=== PATIENT | female | born 1955 | race Caucasian/White ===

== ENCOUNTER 2017-03-10 10:59 | Emergency (ER) | payer OTHER ==
[2017-03-10 13:05] LABS: BASOPHIL 0.1 % (0-2); EOSINOPHIL 0.2 % (0-5); HCT 37.4 % (37.0-47.0); HGB 12.4 g/dl (12.5-16.0); LYMPHOCYTE 9.1 % (15-48); MCH 33.8 pg (25.0-31.0); MCHC 33.2 g/dL (32.0-36.0); MCV 101.9 fL (78.0-100.0); MONOCYTE 4.3 % (0-12); MPV 8.1 fL (6.0-9.5); NEUTROPHIL 86.3 % (41-80); PLT 449 K/uL (150-400); RBC 3.67 M/uL (4.20-5.40); RDW 16.8 % (11.5-14.0)
[2017-03-10 13:13] LABS: BILIRUBIN NEGATIVE (NEGATIVE); BLOOD NEGATIVE Ery/uL (NEGATIVE); CLARITY CLEAR (CLEAR); COLOR YELLOW (YELLOW); GLUCOSE (U) NORMAL (NORMAL); KETONE (U) TRACE mg/dL (NEGATIVE); LEUKOCYTES TRACE Leu/uL (NEGATIVE); NITRITE NEGATIVE (NEGATIVE); PROTEIN TRACE (LOW) mg/dL (NEGATIVE); SPECIFIC GRAVITY 1.015 (1.001-1.030); pH 5.5 (5.0-9.0)
[2017-03-10 13:19] LABS: CREATININE 0.5 mg/dL (0.5-1.0); POTASSIUM 3.6 mmol/L (3.5-5.1)
[2017-03-10 13:26] LABS: WBC 16.7 K/uL (4.0-10.5)
[2017-03-10 13:33] LABS: BACTERIA 2+
[2017-05-23] MEDS ORDERED: COLACE100 MG PO (11:17)
[2017-05-23] MEDS ORDERED: PERCOCET 10/321 EACH PO (11:18)
[2017-05-23] MEDS ORDERED: LEVAQUIN500 MG PO (11:18)
[2017-05-23] MEDS ORDERED: METRONIDAZOLE500 MG PO (11:18)
[2017-05-23] MEDS ORDERED: SYNTHROID25 MCG PO (11:19)
[2017-05-23] MEDS ORDERED: MAG-OXIDE 400M400 MG PO (11:19)
[2017-05-23] MEDS ORDERED: VITAMIN D5000 UNIT PO (11:19)
[2017-05-23] MEDS ORDERED: LEXAPRO 10MG TA10 MG PO (11:19)
[2017-05-23] MEDS ORDERED: PROTONIX 40MG T40 MG PO (11:19)
[2017-05-23] MEDS ORDERED: DIAZEPAM 5MG TAB5 MG PO (11:19)
[2017-05-23] MEDS ORDERED: ZOFRAN ODT4 MG PO (11:20)
[2017-05-23] MEDS ORDERED: POTASSIUM GLUC500 MG PO (11:20)
[2017-05-23] MEDS ORDERED: FOLIC ACID1 MG PO (11:20)
[2017-05-23] MEDS ORDERED: LIPITOR 10MG TA10 MG PO (11:20)
== END 2017-03-10 14:20 | disposition home or self-care (01) ==
LOC: FER 10:59
PROVIDERS: Internal Medicine
DX: R55 Syncope and collapse (principal); R42 Dizziness and giddiness; I10 Essential (primary) hypertension; F32.9 Major depressive disorder, single episode, unspecified; F17.210 Nicotine dependence, cigarettes, uncomplicated; Z85.118 Personal history of other malignant neoplasm of bronchus and lung; Z79.899 Other long term (current) drug therapy
CPT/HCPCS: 36415; 80048; 81001; 84484; 85025; 93005

== ENCOUNTER 2017-03-11 11:55 | Emergency (ER) | payer OTHER ==
[2017-05-23] MEDS ORDERED: COLACE100 MG PO (11:17)
[2017-05-23] MEDS ORDERED: LEVAQUIN500 MG PO (11:18)
[2017-05-23] MEDS ORDERED: PERCOCET 10/321 EACH PO (11:18)
[2017-05-23] MEDS ORDERED: METRONIDAZOLE500 MG PO (11:18)
[2017-05-23] MEDS ORDERED: LEXAPRO 10MG TA10 MG PO (11:19)
[2017-05-23] MEDS ORDERED: SYNTHROID25 MCG PO (11:19)
[2017-05-23] MEDS ORDERED: MAG-OXIDE 400M400 MG PO (11:19)
[2017-05-23] MEDS ORDERED: PROTONIX 40MG T40 MG PO (11:19)
[2017-05-23] MEDS ORDERED: DIAZEPAM 5MG TAB5 MG PO (11:19)
[2017-05-23] MEDS ORDERED: VITAMIN D5000 UNIT PO (11:19)
[2017-05-23] MEDS ORDERED: FOLIC ACID1 MG PO (11:20)
[2017-05-23] MEDS ORDERED: ZOFRAN ODT4 MG PO (11:20)
[2017-05-23] MEDS ORDERED: POTASSIUM GLUC500 MG PO (11:20)
[2017-05-23] MEDS ORDERED: LIPITOR 10MG TA10 MG PO (11:20)
== END 2017-03-11 16:01 | disposition home or self-care (01) ==
LOC: FER 11:55
DX: G47.00 Insomnia, unspecified (principal); R10.9 Unspecified abdominal pain; R19.7 Diarrhea, unspecified; I10 Essential (primary) hypertension; J44.9 Chronic obstructive pulmonary disease, unspecified; F17.210 Nicotine dependence, cigarettes, uncomplicated; Z85.841 Personal history of malignant neoplasm of brain; Z85.118 Personal history of other malignant neoplasm of bronchus and lung; Z88.2 Allergy status to sulfonamides; Z88.5 Allergy status to narcotic agent; Z90.49 Acquired absence of other specified parts of digestive tract; Z90.10 Acquired absence of unspecified breast and nipple; Z90.89 Acquired absence of other organs; Z98.890 Other specified postprocedural states
CPT/HCPCS: 99283

== ENCOUNTER → 2017-04-09 | Day surgery (SDC) | payer OTHER ==
[~2017-04-09] VITALS: Ht 172.7 cm; Wt 64.1 kg
[~2017-04-09] MED LIST: COLACE100 MG PO; DIAZEPAM 5MG TAB5 MG PO; FOLIC ACID1 MG PO; LEVAQUIN500 MG PO; LEXAPRO 10MG TA10 MG PO; LIPITOR 10MG TA10 MG PO; MAG-OXIDE 400M400 MG PO; METRONIDAZOLE500 MG PO; PERCOCET 10/321 EACH PO; POTASSIUM GLUC500 MG PO; PROTONIX 40MG T40 MG PO; SYNTHROID25 MCG PO; VITAMIN D5000 UNIT PO; ZOFRAN ODT4 MG PO
== END | disposition home or self-care (01) ==
LOC: FAS 08:00
DX: I87.2 Venous insufficiency (chronic) (peripheral) (principal); I10 Essential (primary) hypertension; K21.9 Gastro-esophageal reflux disease without esophagitis; E03.9 Hypothyroidism, unspecified; J44.9 Chronic obstructive pulmonary disease, unspecified; D64.9 Anemia, unspecified; M19.90 Unspecified osteoarthritis, unspecified site; F41.9 Anxiety disorder, unspecified; F17.210 Nicotine dependence, cigarettes, uncomplicated; Z88.0 Allergy status to penicillin; Z88.2 Allergy status to sulfonamides; Z88.5 Allergy status to narcotic agent; Z79.899 Other long term (current) drug therapy; Z90.49 Acquired absence of other specified parts of digestive tract; Z90.710 Acquired absence of both cervix and uterus
CPT/HCPCS: 71010; 76000; C1788; J1644; J2704; J3010

== ENCOUNTER 2017-04-15 06:49 | Emergency (ER) | payer OTHER ==
[2017-04-15 07:55] LABS: BASOPHIL 0.3 % (0-2); EOSINOPHIL 1.1 % (0-5); HGB 11.1 g/dl (12.5-16.0); LYMPHOCYTE 19.5 % (15-48); MCH 33.1 pg (25.0-31.0); MCHC 32.6 g/dL (32.0-36.0); MCV 101.5 fL (78.0-100.0); MONOCYTE 5.4 % (0-12); MPV 7.8 fL (6.0-9.5); NEUTROPHIL 73.7 % (41-80); PLT 231 K/uL (150-400); RBC 3.35 M/uL (4.20-5.40); RDW 15.4 % (11.5-14.0); WBC 6.3 K/uL (4.0-10.5)
[2017-04-15 08:02] LABS: BILIRUBIN 1+ mg/dL (NEGATIVE); BLOOD 1+ Ery/uL (NEGATIVE); CLARITY SLIGHTLY HAZY (CLEAR); COLOR YELLOW (YELLOW); GLUCOSE (U) NORMAL (NORMAL); KETONE (U) TRACE mg/dL (NEGATIVE); LEUKOCYTES 2+ Leu/uL (NEGATIVE); NITRITE NEGATIVE (NEGATIVE); PROTEIN NEGATIVE (NEGATIVE); UROBILINOGEN 0.2 mg/dL (0.2-1.0)
[2017-04-15 08:06] LABS: INR 0.92 (0.9-1.2); PTT 35.4 SECONDS (23.2-31.4)
[2017-04-15 08:07] LABS: BACTERIA 2+; URINARY WBC TNTC
[2017-04-15 08:14] LABS: ALBUMIN 4.3 g/dL (3.4-4.8); BILIRUBIN - TOTAL 0.4 mg/dL (0.1-1.0); CREATININE 0.8 mg/dL (0.5-1.0); GLOBULIN (CALCULATION) 3.3 g/dL (2.2-4.2); POTASSIUM 3.7 mmol/L (3.5-5.1); TOTAL PROTEIN 7.6 g/dL (6.4-8.3)
[2017-05-23] MEDS ORDERED: COLACE100 MG PO (11:17)
[2017-05-23] MEDS ORDERED: LEVAQUIN500 MG PO (11:18)
[2017-05-23] MEDS ORDERED: METRONIDAZOLE500 MG PO (11:18)
[2017-05-23] MEDS ORDERED: PERCOCET 10/321 EACH PO (11:18)
[2017-05-23] MEDS ORDERED: LEXAPRO 10MG TA10 MG PO (11:19)
[2017-05-23] MEDS ORDERED: MAG-OXIDE 400M400 MG PO (11:19)
[2017-05-23] MEDS ORDERED: DIAZEPAM 5MG TAB5 MG PO (11:19)
[2017-05-23] MEDS ORDERED: SYNTHROID25 MCG PO (11:19)
[2017-05-23] MEDS ORDERED: VITAMIN D5000 UNIT PO (11:19)
[2017-05-23] MEDS ORDERED: PROTONIX 40MG T40 MG PO (11:19)
[2017-05-23] MEDS ORDERED: POTASSIUM GLUC500 MG PO (11:20)
[2017-05-23] MEDS ORDERED: ZOFRAN ODT4 MG PO (11:20)
[2017-05-23] MEDS ORDERED: LIPITOR 10MG TA10 MG PO (11:20)
[2017-05-23] MEDS ORDERED: FOLIC ACID1 MG PO (11:20)
== END 2017-04-15 09:55 | disposition home or self-care (01) ==
LOC: FER 06:49
PROVIDERS: Emergency Medicine
DX: K62.5 Hemorrhage of anus and rectum (principal); C34.90 Malignant neoplasm of unspecified part of unspecified bronchus or lung; R19.7 Diarrhea, unspecified; R82.90 Unspecified abnormal findings in urine; F17.210 Nicotine dependence, cigarettes, uncomplicated; Z85.3 Personal history of malignant neoplasm of breast; Z92.21 Personal history of antineoplastic chemotherapy; Z88.0 Allergy status to penicillin; Z88.2 Allergy status to sulfonamides; Z88.5 Allergy status to narcotic agent
CPT/HCPCS: 36415; 74022; 80053; 81001; 85025; 85610; 85730; 87076; 87088; 87186; 99284

== ENCOUNTER 2017-06-24 12:30 | Inpatient (IN) | payer OTHER ==
[~2017-06-24] VITALS: Ht 172.7 cm; Wt 60.4 kg
[2017-06-24 15:00] LABS: BASOPHIL 0.2 % (0-2); EOSINOPHIL 1.6 % (0-5); HCT 27.6 % (37.0-47.0); HGB 9.1 g/dl (12.5-16.0); LYMPHOCYTE 23.7 % (15-48); MCH 31.2 pg (25.0-31.0); MCV 94.5 fL (78.0-100.0); MONOCYTE 1.9 % (0-12); MPV 8.4 fL (6.0-9.5); NEUTROPHIL 72.6 % (41-80); PLT 341 K/uL (150-400); RBC 2.92 M/uL (4.20-5.40); RDW 16.3 % (11.5-14.0); WBC 4.9 K/uL (4.0-10.5)
[2017-06-24 15:23] LABS: ALBUMIN 3.4 g/dL (3.4-4.8); BILIRUBIN - TOTAL 0.4 mg/dL (0.1-1.0); CREATININE 0.7 mg/dL (0.5-1.0); GLOBULIN (CALCULATION) 3.1 g/dL (2.2-4.2); POTASSIUM 2.8 mmol/L (3.5-5.1); TOTAL PROTEIN 6.5 g/dL (6.4-8.3)
[2017-06-25 02:02] LABS: FOLIC ACID (SERUM) 17.8 ng/mL (5.6-45.8)
[2017-06-25 06:36] LABS: BASOPHIL 0.3 % (0-2); HCT 23.1 % (37.0-47.0); HGB 7.5 g/dl (12.5-16.0); LYMPHOCYTE 30.9 % (15-48); MCHC 32.5 g/dL (32.0-36.0); MCV 95.5 fL (78.0-100.0); MONOCYTE 2.7 % (0-12); MPV 8.4 fL (6.0-9.5); NEUTROPHIL 62.1 % (41-80); PLT 265 K/uL (150-400); RBC 2.42 M/uL (4.20-5.40); RDW 16.2 % (11.5-14.0)
[2017-06-25 07:01] LABS: ALBUMIN 2.9 g/dL (3.4-4.8); BILIRUBIN - TOTAL 0.3 mg/dL (0.1-1.0); CREATININE 0.7 mg/dL (0.5-1.0); GLOBULIN (CALCULATION) 2.8 g/dL (2.2-4.2); MAGNESIUM 1.74 mg/dL (1.40-2.10); POTASSIUM 2.9 mmol/L (3.5-5.1); TOTAL PROTEIN 5.7 g/dL (6.4-8.3)
[2017-06-26 07:01] LABS: HCT 32.4 % (37.0-47.0); MCH 29.8 pg (25.0-31.0); MCHC 32.7 g/dL (32.0-36.0); MPV 8.4 fL (6.0-9.5); RBC 3.56 M/uL (4.20-5.40); RDW 18.4 % (11.5-14.0)
[2017-06-26 07:12] LABS: CREATININE 0.7 mg/dL (0.5-1.0)
[2017-06-26 07:18] LABS: POTASSIUM 4.4 mmol/L (3.5-5.1)
[2017-06-26 07:19] LABS: HGB 10.6 g/dl (12.5-16.0); WBC 2.4 K/uL (4.0-10.5)
[2017-06-29 06:31] LABS: HCT 28.8 % (37.0-47.0); HGB 9.2 g/dl (12.5-16.0); MCH 30.3 pg (25.0-31.0); MCHC 31.9 g/dL (32.0-36.0); MCV 94.7 fL (78.0-100.0); MPV 8.7 fL (6.0-9.5); RBC 3.04 M/uL (4.20-5.40); RDW 16.7 % (11.5-14.0)
[2017-06-29 07:06] LABS: CREATININE 0.7 mg/dL (0.5-1.0); MAGNESIUM 1.04 mg/dL (1.40-2.10); POTASSIUM 3.4 mmol/L (3.5-5.1)
[2017-06-30 05:42] LABS: BASOPHIL 0 % (0-2); EOSINOPHIL 9.5 % (0-5); HCT 27.8 % (37.0-47.0); HGB 8.8 g/dl (12.5-16.0); LYMPHOCYTE 52.6 % (15-48); MCH 30.2 pg (25.0-31.0); MCHC 31.7 g/dL (32.0-36.0); MCV 95.5 fL (78.0-100.0); MONOCYTE 13.1 % (0-12); MPV 9.2 fL (6.0-9.5); NEUTROPHIL 24.8 % (41-80); RBC 2.91 M/uL (4.20-5.40); RDW 16.2 % (11.5-14.0)
[2017-06-30 05:49] LABS: WBC 1.4 K/uL (4.0-10.5)
[2017-06-30 05:50] LABS: PLT 47 K/uL (150-400)
[2017-06-30 06:22] LABS: ALBUMIN 2.9 g/dL (3.4-4.8); BILIRUBIN - TOTAL 0.3 mg/dL (0.1-1.0); CREATININE 0.7 mg/dL (0.5-1.0); GLOBULIN (CALCULATION) 2.4 g/dL (2.2-4.2); MAGNESIUM 1.03 mg/dL (1.40-2.10); PHOSPHORUS 4.8 mg/dL (2.7-4.5); POTASSIUM 3.4 mmol/L (3.5-5.1); TOTAL PROTEIN 5.3 g/dL (6.4-8.3)
[2017-07-02 15:09] LABS: HCT 38.7 % (37.0-47.0); MCH 29.5 pg (25.0-31.0); MCHC 30.7 g/dL (32.0-36.0); MCV 95.8 fL (78.0-100.0); RBC 4.04 M/uL (4.20-5.40); RDW 15.5 % (11.5-14.0)
[2017-07-02 15:45] LABS: BILIRUBIN - TOTAL 0.2 mg/dL (0.1-1.0); CREATININE 0.8 mg/dL (0.5-1.0); GLOBULIN (CALCULATION) 3.2 g/dL (2.2-4.2); MAGNESIUM 1.39 mg/dL (1.40-2.10); POTASSIUM 3.5 mmol/L (3.5-5.1); TOTAL PROTEIN 6.2 g/dL (6.4-8.3)
[2017-07-02 15:58] LABS: HGB 11.9 g/dl (12.5-16.0)
[2017-07-02 15:59] LABS: PLT 18 K/uL (150-400)
[2017-07-02 16:00] LABS: WBC 1.2 K/uL (4.0-10.5)
== END 2017-07-05 13:48 | disposition hospice, home (50) | DRG 385 ==
LOC: FER 12:30 → FMS 18:50
PROVIDERS: Internal Medicine; Nurse Practitioner; ADMIT Internal Medicine
PROC: 30233N1 Transfusion of Nonautologous Red Blood Cells into Peripheral Vein, Percutaneous Approach (ICD-10-PCS; principal; 2017-06-25)
DX: K51.00 Ulcerative (chronic) pancolitis without complications (principal); D61.810 Antineoplastic chemotherapy induced pancytopenia; C79.31 Secondary malignant neoplasm of brain; C79.00 Secondary malignant neoplasm of unspecified kidney and renal pelvis; C34.90 Malignant neoplasm of unspecified part of unspecified bronchus or lung; E83.42 Hypomagnesemia; D64.81 Anemia due to antineoplastic chemotherapy; Z85.3 Personal history of malignant neoplasm of breast; Z51.5 Encounter for palliative care; K57.90 Diverticulosis of intestine, part unspecified, without perforation or abscess without bleeding; I10 Essential (primary) hypertension; M19.90 Unspecified osteoarthritis, unspecified site; Z87.891 Personal history of nicotine dependence; Z88.2 Allergy status to sulfonamides; Z88.0 Allergy status to penicillin; Z88.5 Allergy status to narcotic agent; E87.6 Hypokalemia
CPT/HCPCS: 36415; 36430; 71010; 71275; 73502; 80048; 80053; 82150; 82607; 82728; 82746; 83540; 83605; 83690; 83735; 84100; 84132; 85025; 86850; 86900; 86901; 86922; 87205; 87493; 93005; J1170; J1956; J2175; J2405; J3370; J3475; P9016; Q9962; Q9967